=== PATIENT | male | born 1990 | race Caucasian/White ===

== ENCOUNTER 2021-03-20 05:38 | Emergency (ER) | payer OTHER ==
[~2021-03-20] VITALS: Ht 193 cm; Wt 97.5 kg
[2021-03-20] MEDS ORDERED: MOBIC7.5 MG PO (08:51)
== END 2021-03-20 09:13 | disposition home or self-care (01) ==
LOC: ED 05:38
DX: M25.551 Pain in right hip (principal); R60.0 Localized edema

== ENCOUNTER → 2021-03-24 | Outpatient (CLI) | payer OTHER ==
[~2021-03-24] MED LIST: MOBIC7.5 MG PO
== END | disposition home or self-care (01) ==
LOC: RAD 10:49
PROVIDERS: ATTEND Orthopaedic Surgery
DX: M25.551 Pain in right hip (principal)